=== PATIENT | female | born 1955 | race Caucasian/White ===

== ENCOUNTER 2023-01-06 15:06 | Emergency (ER) | payer MEDICARE, SELFPAY ==
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
[2023-01-06 15:16] VITALS: BP 135/65; PULSE 92; RESP 16; TEMP 36.6; O2SAT 98
--- NOTE | 2023-01-06 15:24 | ED.LOWEXIN ---
HPI - Extremity Injury (Lower) General Chief Complaint: Extremity Injury, Lower Stated Complaint: Toe Injury Time Seen by Provider: 01/06/23 15:24 History of Present Illness HPI Narrative: patient presents with left little toe pain. patient stubbed her toe yesterday and has swelling and pain to left little toe. no deformity noted. Related Data Home Medications Medication Instructions Recorded Confirmed apixaban 5 mg tablet (Eliquis) 5 mg PO BID 01/06/23 01/06/23 furosemide 40 mg tablet 40 mg PO DAILY 01/06/23 01/06/23 lisinopril 20 1 tablet PO DAILY 01/06/23 01/06/23 mg-hydrochlorothiazide 25 mg tablet metformin 500 mg tablet,extended 500 mg PO DAILY 01/06/23 01/06/23 release 24 hr methocarbamol 750 mg tablet 750 mg PO TID 01/06/23 01/06/23 pravastatin 40 mg tablet 40 mg PO QHS 01/06/23 01/06/23 zolpidem 5 mg tablet 5 mg PO DAILY 01/06/23 01/06/23 Allergies Allergy/AdvReac Type Severity Reaction Status Date / Time iodine Allergy Intermediate Rash Verified 01/06/23 15:25 Review of Systems Review of Systems: CONSTITUTIONAL: Denies fever, chills, or sweats. EYES: Denies visual changes, redness, or discharge. ENT: Denies rhinorrhea, congestion, sore throat, or otalgia. CARDIOVASCULAR: Denies chest pain, palpitations, or edema. RESPIRATORY: Denies cough or dyspnea. GASTROINTESTINAL: Denies abdominal pain, nausea, vomiting, or diarrhea. GENITOURINARY: Denies dysuria or hematuria. SKIN: Denies rash or itching. MUSCULOSKELETAL: Denies back pain, joint pain, or myalgia. NEUROLOGIC: Denies headache, numbness, or weakness. PSYCHIATRIC: Denies anxiety or depression. PMF Comments At time of signature, agree with nursing past medical, surgical, social and family history. There is no relevant family history pertinent to the presenting complaint Exam Narrative: GENERAL: Well-appearing, well-nourished, and in no acute distress. HEAD: Normocephalic, atraumatic. EYES: PERRLA and EOMI. ENT: Nares clear, no rhinorrhea or epistaxis. Mucous membranes moist. NECK: Supple. CHEST: Clear to auscultation. No respiratory distress. HEART: Regular rate and rhythm. No murmur heard. Normal peripheral pulses. ABDOMEN: Soft, nontender, nondistended, normal active bowel sounds. EXTREMITIES: Normal range of motion. No edema. Foot exam ANKLE EXAM SKIN INTACT. NORMAL DP PULSE, NORMAL CAP REFILL. NORMAL SENSATION. swelling to left little toe SKIN: Warm, dry, no rash. NEURO: No focal deficits. Alert and oriented x3. Radha Coma Scale Eye Opening: Spontaneous 4 [place] Coma Scale Motor: Obeys Commands 6 Radha Coma Scale Verbal: Oriented 5 [place] Coma Scale Total 15 Course Course Level of Care: Express Care Visit Vital Signs Vital signs: Vital Signs Temperature 36.6 C 01/06/23 15:16 Pulse Rate 92 01/06/23 15:16 Respiratory Rate 16 01/06/23 15:16 Blood Pressure 135/65 01/06/23 15:16 Pulse Oximetry 98 01/06/23 15:16 Oxygen Delivery Room Air 01/06/23 15:16 Temperature 36.6 C 01/06/23 15:16 Pulse Rate 92 01/06/23 15:16 Respiratory Rate 16 01/06/23 15:16 Blood Pressure 135/65 01/06/23 15:16 Pulse Oximetry 98 01/06/23 15:16 Oxygen Delivery Room Air 01/06/23 15:16 MDM - Extremity Injury (Lower) Differential Diagnosis Differential diagnosis: Likely ankle sprain and strain, acute internal derangement of knee, fracture of femur, fracture of hip, puncture wound of foot, fracture of toe and ankle fracture Imaging Data Radiologist's impression: Lateral impacted nondisplaced extra-articular fracture at the head/neck of the left 5th proximal phalanx Discharge Plan Discharge Clinical Impression: Toe contusion Patient Disposition: Home, Self-Care Condition: Stable Instructions: Toe Fracture (ED) Additional Instructions: Ice to the area 20-30 minutes 4-6 times a day Elevate above heart Elastic wrap or orthopedic splint as directed for comfort for the next 5-7 days Low
== END 2023-01-06 16:05 | disposition home or self-care (01) ==
PROVIDERS: Emergency Provider Nurse Practitioner Family
DX: S90.122A Contusion of left lesser toe(s) without damage to nail, initial encounter (principal); Z79.01 Long term (current) use of anticoagulants; Z79.84 Long term (current) use of oral hypoglycemic drugs; W22.8XXA Striking against or struck by other objects, initial encounter
CPT/HCPCS: 73630; 99213; G0463